=== PATIENT | male | born 1950 ===

== ENCOUNTER 2022-02-09 02:58 | Outpatient (CLI) | payer MEDICARE, SELFPAY ==
--- NOTE | 2022-02-09 | DI.US_ITS ---
APPROVED REPORT EXAM: Comprehensive 2D, Doppler, and color-flow Echocardiogram Patient Location: Out-Patient [facility] Clerk: Enriqueta Vu RDCS (AE) Indications: Chest pain on exertion Other Information Study Quality: Fair. Technically limited study due to body habitus. Conclusion Normal left ventricular wall thickness and chamber size. Estimated ejection fraction is 55 to 60%. No wall motion abnormalities are identified The right ventricle is not well visualized Both atria are normal in size Aortic valve is trileaflet and mildly sclerotic without stenosis or regurgitation Mild mitral annular calcification, trace mitral regurgitation Normal tricuspid valve with trace regurgitation Mildly dilated ascending aorta measuring 3.54 cm Wall motion Left Ventricle The left ventricle is normal size. The overall left ventricular systolic function appears normal. The re is normal left ventricular wall thickness. There is overall normal LV segmental wall motion. There is no ventricular septal defect visualized. LVEF is 57%. Right Ventricle Right ventricle is not well visualized. Right ventricular systolic function could not be assessed. Atria The left atrium size is normal. The right atrium size is normal. The interatrial septum is intact wit h no evidence for an atrial septal defect. Aortic Valve The Aortic valve is mildly sclerotic. Aortic valve is trileaflet. There is no aortic valvular stenosi s. No aortic regurgitation is present. Mitral Valve There is mitral annular calcification. No evidence of mitral valve stenosis. Trace mitral regurgitati on. Tricuspid Valve The tricuspid valve is normal in structure. There is no tricuspid valve stenosis. Trace tricuspid reg urgitation. Unable to assess PA pressure. Pulmonic Valve The pulmonary valve is normal in structure. There is no pulmonic valvular stenosis. Mild pulmonic reg urgitation. Great Vessels The aortic root is normal in size. The ascending aorta is mildly dilated.3.54 cm Aortic arch is not w ell visualized. IVC is normal in size and collapses >50% with inspiration. Pericardium There is no pericardial effusion. 2D Dimensions IVSD d PLAX 1.11 cm M: 0.6-1.2 LVPW d PLAX 1.14 cm M: 0.6 - 1.2 LVID d PLAX 5.40 cm M: 4.2 - 5.8 LVDs 3.75 cm M: 2.5 - 4.0 Ao Root d 3.01 cm M: 3.1 - 3.7 Ao Asc Diam d 3.54 cm M: 2.6 - 3.4 LV EF Teichholz 57.1 % FS 30.25 % M-Mode TAPSE 2.09 cm (M/F) >1.7 LV Diastology MV E' medial 0.044 (>0.07 m/s) E/A Ratio 0.6 LV E/e MED 11.00 (<14) MV E Vmax 0.48 (0.4-1.3 m/s) MV E' lateral 0.051 (>0.1 m/s) MV A Vmax 0.80 (0.4-1.3 m/s) LV E/e LAT 9.55 (<14) MV E/A Ratio 0.57 MV E/E' medial 11.02 MV E/E' lateral 9.60 Aortic Valve LVOT Area 3.26 cm2 AoV Area Vmax 2.00 cm2 LVOT Vmax 1.03 m/s AoV Area/ BSA (Vmax) 0.90 cm2/m2 LVOT Mean Julian. 0.61 m/s FREIDA Mean Julian. 1.69 cm2 LVOT Peak Grad 4.2 mmHg FREIDA Mean Julian. Index 0.76 cm2/m2 LVOT Mean Grad 1.9 mmHg LVOT VTI 0.189 m LVOT Diam s 2.00 cm AoV Vmax 1.67 m/s Velocity Ratio 0.61 AoV Mean Julian. 1.18 m/s AoV Peak Grad 11.1 mmHg LVOT SV 61.62 mL AoV Mean Grad 6.3 mmHg AoV VTI 0.276 m AoV Area VTI 2.23 cm2 AoV Area/ BSA (VTI) 1.01 cm/m2 Mitral Valve MV DT 359 (160-240 msec) MV PHT 104 msec MV Area PHT 2.11 cm2 MV VTI 0.276 m MV Area VTI 2.24 (4.0-6.0 cm2) Pulmonary Valve PV Vmax 0.94 (0.5-1.5 m/s) RVOT Peak Gr. 2.04 mmHg PV Peak Grad 3.5 mmHg RVOT Mean Gr. 0.90 mmHg PV Mean Grad 1.8 mmHg RVOT VTI 0.109 m PV VTI 0.171 m RVOT Vmax 0.72 m/s
== END 2022-02-09 03:18 ==
PROVIDERS: Referring Provider Internal Medicine Cardiovascular Disease; Visit Provider Neuromusculoskeletal Medicine & OMM
DX: R07.89 Other chest pain (principal); I35.8 Other nonrheumatic aortic valve disorders
CPT/HCPCS: 93306

== ENCOUNTER 2022-03-11 09:29 | Outpatient (CLI) | payer MEDICARE, SELFPAY ==
--- NOTE | 2022-03-11 09:15 | RT.EKG_ITS ---
APPROVED REPORT Exam: Resting ECG Reason for Exam: CAD Patient Location: O HR:81 bpm ECG Measurements Heart Rate 81 AXIS SD 155 P 18 QRSd 146 QRS -14 QT 399 T -36 QTc 464 Conclusion Sinus rhythm...normal P axis, V-rate 50- 99 Right bundle branch block...QRSd>120, terminal axis(90,270) Probable left ventricular hypertrophy...multiple LVH criteria Baseline wander in lead(s) V1,V5,V6
== END 2022-03-11 09:30 | disposition home or self-care (01) ==
LOC: DI.CARD 09:29
PROVIDERS: Visit Provider Internal Medicine Cardiovascular Disease
DX: I25.10 Atherosclerotic heart disease of native coronary artery without angina pectoris (principal); R94.31 Abnormal electrocardiogram [ECG] [EKG]; I45.19 Other right bundle-branch block
CPT/HCPCS: 93010

== ENCOUNTER → 2022-03-11 10:40 | Outpatient (BNVA) | payer MEDICARE, SELFPAY | PROVIDERS: Visit Provider Internal Medicine Cardiovascular Disease | DX: I25.10 Atherosclerotic heart disease of native coronary artery without angina pectoris (principal); I45.19 Other right bundle-branch block; R94.31 Abnormal electrocardiogram [ECG] [EKG]; Z95.5 Presence of coronary angioplasty implant and graft; I10 Essential (primary) hypertension; E78.5 Hyperlipidemia, unspecified | CPT/HCPCS: 93005; 99203 ==

== ENCOUNTER 2022-04-21 10:17 | Outpatient (RCR) | payer MEDICARE, SELFPAY | END 2022-04-24 23:59 | disposition home or self-care (01) | LOC: CR 10:17 | PROVIDERS: Referring Provider Internal Medicine Cardiovascular Disease; Visit Provider Internal Medicine Cardiovascular Disease | DX: Z95.5 Presence of coronary angioplasty implant and graft (principal); Z51.89 Encounter for other specified aftercare | CPT/HCPCS: S9472 ==

== ENCOUNTER 2022-05-03 09:49 | Outpatient (RCR) | payer MEDICARE, SELFPAY | END 2022-05-25 23:59 | disposition home or self-care (01) | LOC: CR 09:49 | PROVIDERS: Referring Provider Internal Medicine Cardiovascular Disease; Visit Provider Internal Medicine Cardiovascular Disease | DX: Z95.5 Presence of coronary angioplasty implant and graft (principal); Z51.89 Encounter for other specified aftercare | CPT/HCPCS: S9472 ==

== ENCOUNTER → 2022-06-15 09:23 | Outpatient (BNVA) | payer MEDICARE, SELFPAY | PROVIDERS: Visit Provider Internal Medicine Cardiovascular Disease | DX: I25.10 Atherosclerotic heart disease of native coronary artery without angina pectoris (principal); I10 Essential (primary) hypertension; E78.5 Hyperlipidemia, unspecified | CPT/HCPCS: 99213 ==